=== PATIENT | female | born 1985 | race Two or more races ===

== ENCOUNTER 2022-10-30 16:52 | Emergency (ER) | payer OTHER ==
[~2022-10-30] VITALS: Ht 154.9 cm; Wt 60.8 kg
[2022-10-30] MEDS ORDERED: ESTAZOLAM2 MG PO (17:07)
[2022-10-30] MEDS ORDERED: ANUSOL-HC30 G2 TOP (18:12)
== END 2022-10-30 18:15 | disposition home or self-care (01) ==
LOC: ER 16:52
DX: K64.1 Second degree hemorrhoids (principal)